=== PATIENT | female | born 1995 | race African-American/Black ===

== ENCOUNTER 2017-07-18 17:36 | Emergency (ER) | payer MEDICAID ==
[~2017-07-18] VITALS: Ht 170.2 cm; Wt 70.0 kg
[2017-07-18 18:13] VITALS: BP 101/65
== END 2017-07-18 18:14 | disposition left against medical advice (07) ==
LOC: ER 17:47
DX: R55 Syncope and collapse (principal); Z53.21 Procedure and treatment not carried out due to patient leaving prior to being seen by health care provider

== ENCOUNTER 2017-07-22 11:12 | Emergency (ER) | payer MEDICAID | END 2017-07-22 12:20 | disposition left against medical advice (07) | LOC: ER 12:14 | DX: Z53.21 Procedure and treatment not carried out due to patient leaving prior to being seen by health care provider (principal) ==